=== PATIENT | female | born 1970 | race Hispanic/Latino ===

== ENCOUNTER 2020-09-19 21:27 | Emergency (ER) | payer OTHER ==
[~2020-09-19] VITALS: Ht 147.3 cm; Wt 67.1 kg
[2020-09-19] MEDS ORDERED: IBUPROFEN IB200 MG PO (21:56)
[2020-09-19] MEDS ORDERED: ZANAFLEX4 MG PO (21:56)
[2020-09-19] MEDS ORDERED: ULTRAM 50MG50 MG PO (21:56)
[2020-09-19] MEDS ORDERED: ACETAMINOPHEN500 MG PO (21:56)
[2020-09-19] MEDS ORDERED: HYDROCODONE/APAP 5MG-325MG TAB PO ONE (22:00)
[2020-09-19] MEDS ORDERED: ONDANSETRON HCL 4 MG ORAL DISINTEGRATING TAB PO ONE (22:00)
[2020-09-19] MEDS ORDERED: PREDNISONE 20 MG TAB PO ONE (22:00)
[2020-09-19] MEDS ORDERED: KETOROLAC TROMETHAMINE 30 MG/ML VIAL IM ONE (22:00)
[2020-09-19] MEDS ORDERED: ONDANSETRON HCL 4 MG ORAL DISINTEGRATING TAB ONE (22:19)
[2020-09-19] MEDS ORDERED: PREDNISONE 20 MG TAB ONE (22:19)
[2020-09-19] MEDS ORDERED: KETOROLAC TROMETHAMINE 30 MG/ML VIAL ONE (22:19)
[2020-09-19] MEDS ORDERED: HYDROCODONE/APAP 5MG-325MG TAB ONE (22:20)
[2020-09-19 23:42] VITALS: BP 164/72
== END 2020-09-19 23:42 | disposition home or self-care (01) ==
LOC: FSED 21:40
DX: M54.2 Cervicalgia (principal); M62.830 Muscle spasm of back
CPT/HCPCS: 72125; 81003; 96372; 99283; J1885; J7512; Q0162